=== PATIENT | female | born 2000 | race Caucasian/White ===

== ENCOUNTER 2024-11-02 21:55 | Emergency (ER) | payer MEDICAID ==
[~2024-11-02] VITALS: Ht 162.6 cm; Wt 90.7 kg
[2024-11-02 21:58] VITALS: BP 134/86; PULSE 96; RESP 18; TEMP 36.9; O2SAT 99
[2024-11-02 23:54] LABS: DIFFERENTIAL COMMENT 0; EOSINOPHILS % 1.2 % (0.0-5.0); HEMOGLOBIN. 11.3 g/dL (12.0-16.0); LYMPHOCYTES % 29.2 % (20.0-50.0); MEAN CORPUSCULAR HEMOGLOBIN 22.4 pg (28.0-32.0); MEAN CORPUSCULAR HGB CONC 30.4 g/dL (31.0-37.0); MEAN CORPUSCULAR VOLUME 73.8 fL (81.0-99.0); MONOCYTES % 9.9 % (2.0-8.0); NEUTROPHILS % 58.7 % (40.0-76.0); PLATELET 332 x1000/uL (130-400); RED BLOOD CELL COUNT 5.01 mill/uL (4.2-5.4); RED CELL DISTRIBUTION WIDTH 16.9 % (11.6-14.6); WHITE BLOOD COUNT 8.3 x1000/uL (4.5-11.0)
[2024-11-03 00:34] LABS: HCG SCREEN NEGATIVE
[2024-11-03 04:33] LABS: CHLORIDE 105 mEq/L (98-107); SODIUM 139 mEq/L (136-145)
[2024-11-03 04:34] LABS: CALCIUM 9.5 mg/dL (8.7-10.4); CARBON DIOXIDE 22 mEq/L (21-32)
[2024-11-03 04:39] LABS: CREATININE 0.6 mg/dL (0.6-1.0); GLUCOSE 80 mg/dL (70-105); UREA NITROGEN BLOOD 8 mg/dL (9-23)
[2024-11-03 05:01] LABS: B-HCG QUANTITATIVE < 1 mIU/mL (<3)
== END 2024-11-03 02:57 | disposition home or self-care (01) ==
LOC: ER 21:55
DX: O26.91 Pregnancy related conditions, unspecified, first trimester (principal); N92.0 Excessive and frequent menstruation with regular cycle; J45.909 Unspecified asthma, uncomplicated; Z3A.00 Weeks of gestation of pregnancy not specified; Z79.899 Other long term (current) drug therapy; Z88.0 Allergy status to penicillin
CPT/HCPCS: 36415; 76801; 80048; 84702; 84703; 85025; 86850; 86900; 99284

== ENCOUNTER 2025-06-30 12:17 | Emergency (ER) | payer MEDICAID ==
[~2025-06-30] VITALS: Ht 160 cm; Wt 66.0 kg
[2025-06-30 12:18] VITALS: O2SAT 100
[2025-06-30 13:56] LABS: BASOPHILS % 0.3 % (0.0-2.0); EOSINOPHILS % 0.5 % (0.0-5.0); HEMATOCRIT. 33.1 % (36.0-48.0); HEMOGLOBIN. 10.2 g/dL (12.0-16.0); LYMPHOCYTES % 10.3 % (20.0-50.0); MEAN PLATELET VOLUME 9.5 fl (7.4-10.4); MONOCYTES % 5.3 % (2.0-8.0); NEUTROPHILS % 83.6 % (40.0-76.0); PLATELET 247 x1000/uL (130-400); RED BLOOD CELL COUNT 4.43 mill/uL (4.2-5.4); RED CELL DISTRIBUTION WIDTH 22.4 % (11.6-14.6)
[2025-06-30 14:00] LABS: ADD RBC MORPHOLOGY YES
[2025-06-30 14:19] LABS: CREATININE 0.4 mg/dL (0.6-1.0); UREA NITROGEN BLOOD 8 mg/dL (9-23)
[2025-06-30 14:20] LABS: HCG SCREEN POSITIVE
[2025-06-30 14:21] LABS: ASPARTATE AMINOTRANSFERASE 15 IU/L (<34); BILIRUBIN DIRECT < 0.1 mg/dL (<=3.0); BILIRUBIN TOTAL 0.4 mg/dL (0.1-1.0); PROTEIN TOTAL 6.6 g/dL (6.0-8.3)
[2025-06-30] MEDS: MORPHINE SULFATE 4 MG/ML INJ (FOR IV/IM USE) IV ONE ×3 (14:29→18:26)
[2025-06-30 14:30] LABS: CLARITY URINE CLOUDY (CLEAR); COLOR URINE ORANGE (YELLOW); GLUCOSE URINE NEGATIVE (NEGATIVE); KETONES URINE NEGATIVE (NEGATIVE); LEUKOCYTE ESTERASE URINE 3+ (NEGATIVE); NITRITE URINE NEGATIVE (NEGATIVE); OCCULT BLOOD URINE 3+ (NEGATIVE); PH URINE 6.0 (4.5-8.0); PROTEIN URINE 1+ (NEGATIVE); SPECIFIC GRAVITY URINE 1.019 (1.005-1.030); UROBILINOGEN URINE 1.0 E.U./dL (0.2-1.0)
[2025-06-30 14:31] LABS: B-HCG QUANTITATIVE 65275 mIU/mL (<6)
[2025-06-30 14:53] LABS: SQUAMOUS EPITHELIAL CELL URINE FEW /lpf (RARE/1+)
[2025-06-30 14:54] LABS: BACTERIA URINE 1+; RBC URINE TNTC /hpf (0-2)
[2025-06-30 14:55] LABS: WBC URINE 25-50 /hpf (0-2)
[2025-06-30 15:48] LABS: PLATELET ESTIMATE NORMAL
[2025-06-30] MEDS ORDERED: HYDROMORPHONE HCL/PF 2MG/ML INJ IV ONE (16:00)
[2025-06-30] MEDS: LACTATED RINGERS 1,000 ML IV SCH (16:05)
[2025-06-30] MEDS: HYDROMORPHONE HCL/PF 1MG/ML INJ IV NR (16:22)
[2025-06-30] MEDS: CEFTRIAXONE 1GM/50ML 50 ML IV ONE (16:24)
[2025-06-30 17:38] LABS: *AMPHETAMINES SCREEN URINE PRESUMPTIVE POSITIVE (NEGATIVE); *BARBITURATES SCREEN URINE NEGATIVE (NEGATIVE); *BENZODIAZEPINES SCREEN URINE NEGATIVE (NEGATIVE); *COCAINE SCREEN URINE NEGATIVE (NEGATIVE); CANNABINOID URINE SCREEN NEGATIVE (NEGATIVE); ECSTASY MDMA SCREEN URINE NEGATIVE (NEGATIVE); METHADONE URINE SCREEN NEGATIVE (NEGATIVE); OPIATES URINE SCREEN NEGATIVE (NEGATIVE); PHENCYCLIDINE URINE SCREEN NEGATIVE (NEGATIVE)
[2025-06-30] MEDS: OXYTOCIN 30 UNITS/500ML NS 500 ML IV ONE (21:32)
[2025-07-01] MEDS ORDERED: CEPH500C2 MT (01:53)
[2025-07-01] MEDS: ACETAMINOPHEN 325MG TABLET PO NR (02:01)
[2025-07-01] MEDS ORDERED: IBUP-2028 MT (02:47)
[2025-07-01] MEDS ORDERED: TOPUD PO (02:47)
[2025-07-01 04:09] LABS: HEMATOCRIT. 28.2 % (36.0-48.0); HEMOGLOBIN. 8.8 g/dL (12.0-16.0); MEAN PLATELET VOLUME 9.4 fl (7.4-10.4); PLATELET 228 x1000/uL (130-400); RED BLOOD CELL COUNT 3.89 mill/uL (4.2-5.4); RED CELL DISTRIBUTION WIDTH 22.3 % (11.6-14.6)
[2025-07-01 05:39] LABS: BAND% 10.0 % (1.0-6.0); LYMPHOCYTES % MANUAL 10.0 % (20.0-60.0); MONOCYTES % MANUAL 1.0 % (2.0-8.0); NEUTROPHILS % MANUAL 79.0 % (45.0-75.0)
[2025-07-01 05:40] LABS: PLATELET ESTIMATE NORMAL
[2025-07-01 06:50] VITALS: BP 116/65; PULSE 97; RESP 16; TEMP 37.2; O2SAT 100
== END 2025-07-01 07:00 | disposition home or self-care (01) ==
LOC: ER 12:17
DX: O03.4 Incomplete spontaneous abortion without complication (principal); O26.892 Other specified pregnancy related conditions, second trimester; J45.909 Unspecified asthma, uncomplicated; R10.20 Pelvic and perineal pain unspecified side; Z88.0 Allergy status to penicillin; Z3A.22 22 weeks gestation of pregnancy; Z79.899 Other long term (current) drug therapy
CPT/HCPCS: 99291; 88307; 96365; 96366; 76801; 96375; 96367; 80076; 80305; 80048; 81025; 84703; 84702; 85025 ×2; 86850; 86900; 86901; 87086; 36415 ×2; 76817; 96376; 81003; J0696; J1171; J2270; J7120; J2590